=== PATIENT | female | born 1945 | race Caucasian/White ===

== ENCOUNTER → 2017-01-15 13:15 | Outpatient (CLI) | payer OTHER ==
[2014-08-28 11:44] VITALS: BMI 31.2
[~2017-01-15 13:15] MED LIST: BACTRIM DS TABL1 TAB PO; CARDIZEM CD240 MG PO; DEXILANT60 MG PO; DIOVAN160 MG PO; LOZOL 2.5 MG T2.5 MG PO; PAXIL20 MG PO; PLAVIX75 MG PO; ULTRAM50 MG PO; XALATAN 0.0052.5 ML EACH EYE
== END | disposition home or self-care (01) ==
LOC: D.US 13:15
DX: I65.23 Occlusion and stenosis of bilateral carotid arteries (principal)

== ENCOUNTER → 2017-12-31 14:26 | Outpatient (CLI) | payer OTHER ==
[2014-08-28 11:44] VITALS: BMI 31.2
== END | disposition home or self-care (01) ==
LOC: D.US 14:26
DX: I65.23 Occlusion and stenosis of bilateral carotid arteries (principal)

== ENCOUNTER → 2018-01-27 14:44 | Outpatient (CLI) | payer OTHER ==
[2014-08-28 11:44] VITALS: BMI 31.2
== END | disposition home or self-care (01) ==
LOC: D.US 01-09 10:30
DX: E04.1 Nontoxic single thyroid nodule (principal)

== ENCOUNTER → 2018-02-03 07:00 | Outpatient (CLI) | payer OTHER ==
[2014-08-28 11:44] VITALS: BMI 31.2
== END | disposition home or self-care (01) ==
LOC: D.US 07:00
DX: E04.1 Nontoxic single thyroid nodule (principal)